=== PATIENT | male | born 1990 | race Caucasian/White ===

== ENCOUNTER 2017-11-28 12:17 | Emergency (ER) | payer MEDICAID ==
[~2017-11-28] VITALS: Ht 177.8 cm; Wt 63.6 kg
[2017-11-28 12:25] VITALS: BP 108/73
[2017-11-28] MEDS ORDERED: BUPIVAcaine/PF 2.5 mg/ml (0.25%) 30ml vial SQ ONE (12:55)
[2017-11-28] MEDS ORDERED: ibuprofen tablet 400 MG TABLET PO ONE (12:55)
[2017-11-28] MEDS ORDERED: ibuprofen 200mg tablet PO ONE (13:05)
[2017-11-28] MEDS ORDERED: TETanus/Pertussis (Acell)/Diphther VAC/PF (Tdap-Adult) 0.5ml syringe IMVAC ONE (13:40)
[2017-11-28] MEDS ORDERED: SULF1TAB49 PO (14:21)
[2017-11-28] MEDS ORDERED: IBUP-1985 PO (14:21)
== END 2017-11-28 14:31 | disposition home or self-care (01) ==
LOC: ER 12:17
DX: L02.512 Cutaneous abscess of left hand (principal)
CPT/HCPCS: 26010; 73140; 90471; 99284; A6266; A6449; J3490